=== PATIENT | female | born 2000 | race Caucasian/White ===

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

== ENCOUNTER 2020-01-14 19:51 | Outpatient (CLI) | payer OTHER ==
[2020-01-14 20:41] LABS: Appearance,Urine Cloudy (Clear); Bacteria,Urine Rare /hpf; Bilirubin,Urine Negative (Negative); Blood,Urine Negative (Negative); Color,Urine Yellow; Glucose,Urine (UA) Negative (Negative); Ketones,Urine Trace (Negative); Leukocyte Esterase,Urine Moderate (Negative); Mucus,Urine Moderate /hpf; Nitrite,Urine Negative (Negative); PH, Urine 7.5 (5.0-8.0); Protein,Urine 1+ (Negative); RBC,Urine 2 /hpf (0-5); Specific Gravity,Urine 1.028 (1.001-1.035); Squamous Epithelial Cell,Urine 20 /hpf (0-4); WBC,Urine 31 /hpf (0-5)
[2020-01-14 21:16] VITALS: BP 122/77; PULSE 108; RESP 18; TEMP 97.8
--- NOTE | 2020-02-07 12:47 | P.MSEPDOC ---
Presenting Problems - Arrival Data Date of Arrival on Unit: 01/14/20 Time of Arrival on Unit: 19:51 Mode of Transport: Ambulatory - Complaint OB-Reason for Admission/Chief Complaint: Possible Onset of Labor Medical History - Information : 1 Para: 0 Term: 0 : 0 Abortions: Spontaneous or Elective: 0 Number of Living Children: 0 - Gestational Age Gestational Age by WILI (wks/days): 32 Weeks and 3 Days Review of Systems - Review of Systems Constitutional: No problems Breast: No problems ENT: No problems Cardiovascular: No problems Respiratory: No problems Gastrointestinal: No problems Genitourinary: No problems Musculoskeletal: No problems Neurological: No problems Skin: No problems Vital Signs - Temperature Temperature: 97.8 F Temperature Source: Temporal Artery Scan - Pulse Right Pulse Rate: 108 Pulse Assessment Method: Automatic Cuff - Respirations Respiratory Rate: 18 Oxygen Delivery Method: Room Air O2 Sat by Pulse Oximetry: 98 - Blood Pressure Right Arm Blood Pressure: 122/77 Blood Pressure Mean: 92 Blood Pressure Source: Automatic Cuff Medical Screen Scoring (Pre) - Cervical Exam Dilation: Exam Deferred Effacement: Exam Deferred Membranes: Intact - Uterine Contractions Frequency: N/A Duration: N/A Intensity: N/A - Maternal Vital Signs Maternal Temperature: N/A Maternal Blood Pressure: N/A Signs of Preeclampsia: N/A Maternal Respirations: N/A - Assessment - Baby A Baseline FHR: 130 Heart Rate - NICHD Category: Category I (Normal) = 0 NST: Reactive Position: N/A Station: N/A - Total Score - Baby A Total Score - Baby A: 0 - Total Score - Baby B Total Score - Baby B: 0 - Total Score - Baby C Total Score - Baby C: 0 - Level of Risk - Baby A Level of Risk - Baby A: Low (0-5) - Level of Risk - Baby B Level of Risk - Baby B: Low (0-5) - Level of Risk - Baby C Level of Risk - Baby C: Low (0-5) Physician Notification (Pre) - Physician Notified Physician Notified Date: 01/14/20 Physician Notified Time: 21:10 New Order Received: Yes (discharge home) - Notification Comment Comment: Pt to keep appt as scheduled Disposition - Disposition OB Disposition: Discharge to home Discharge Date: 01/14/20 Discharge Time: 21:13 I agree with the RN Medical Screening Exam: Yes Risk & Benefit of care provided described in d/c instruction: Yes Diagnosis: FALSE LABOR BEFORE 37 COMPLETED WEEKS OF GEST, THIRD TRI
== END 2020-01-14 21:16 | disposition home or self-care (01) ==
LOC: FBPOP 19:51
PROVIDERS: ATTEND Obstetrics & Gynecology
DX: O47.03 False labor before 37 completed weeks of gestation, third trimester (principal); Z3A.32 32 weeks gestation of pregnancy
CPT/HCPCS: 59025; 81001; 87086; G0463; 99213

== ENCOUNTER 2020-02-17 16:42 | Outpatient (CLI) | payer OTHER ==
[2020-02-17 18:03] VITALS: BP 120/78; PULSE 100; RESP 16; TEMP 97.2
--- NOTE | 2020-03-08 08:27 | P.MSEPDOC ---
Presenting Problems - Arrival Data Date of Arrival on Unit: 02/17/20 Time of Arrival on Unit: 16:42 Mode of Transport: Ambulatory - Complaint OB-Reason for Admission/Chief Complaint: NST Medical History - Information : 1 Para: 0 Term: 0 : 0 Abortions: Spontaneous or Elective: 0 Number of Living Children: 0 - Gestational Age Gestational Age by WILI (wks/days): 37 Weeks and 2 Days Review of Systems - Review of Systems Constitutional: No problems Breast: No problems ENT: No problems Cardiovascular: No problems Respiratory: No problems Gastrointestinal: No problems Genitourinary: No problems Musculoskeletal: No problems Neurological: No problems Skin: No problems Vital Signs - Temperature Temperature: 97.2 F Temperature Source: Temporal Artery Scan - Pulse Pulse Oximetery Pulse Rate: 100 Pulse Assessment Method: Pulse Oximetry - Respirations Respiratory Rate: 16 Oxygen Delivery Method: Room Air O2 Sat by Pulse Oximetry: 99 - Blood Pressure Right Arm Blood Pressure: 120/78 Blood Pressure Mean: 92 Blood Pressure Source: Automatic Cuff Medical Screen Scoring (Pre) - Cervical Exam Dilation: Exam Deferred Effacement: Exam Deferred Membranes: Intact - Uterine Contractions Frequency: N/A Duration: N/A Intensity: N/A - Maternal Vital Signs Maternal Temperature: N/A Maternal Blood Pressure: N/A Signs of Preeclampsia: N/A Maternal Respirations: N/A - Maternal Trauma Maternal Trauma: N/A - Assessment - Baby A Baseline FHR: 120 Heart Rate - NICHD Category: Category I (Normal) = 0 NST: Reactive Position: N/A Station: N/A - Total Score - Baby A Total Score - Baby A: 0 - Total Score - Baby B Total Score - Baby B: 0 - Total Score - Baby C Total Score - Baby C: 0 - Level of Risk - Baby A Level of Risk - Baby A: Low (0-5) - Level of Risk - Baby B Level of Risk - Baby B: Low (0-5) - Level of Risk - Baby C Level of Risk - Baby C: Low (0-5) Physician Notification (Pre) - Physician Notified Physician Notified Date: 02/17/20 Physician Notified Time: 17:32 New Order Received: Yes - Notification Comment Comment: Dr. Epperson on unit, tracing reviewed, NST reactive, pt can be discharged home Disposition - Disposition OB Disposition: Discharge to home Discharge Date: 02/17/20 Discharge Time: 17:35 I agree with the RN Medical Screening Exam: Yes Risk & Benefit of care provided described in d/c instruction: Yes Diagnosis: OTHER SPECIFIED COMPLICATIONS OF LABOR AND DELIVERY
== END 2020-02-17 17:35 | disposition home or self-care (01) ==
LOC: FBPOP 16:42
PROVIDERS: ATTEND Obstetrics & Gynecology Obstetrics
DX: O75.89 Other specified complications of labor and delivery (principal); Z3A.37 37 weeks gestation of pregnancy
CPT/HCPCS: 59025; G0463; 99213

== ENCOUNTER 2020-03-09 01:06 | Inpatient (IN) | payer OTHER ==
[2020-03-09] MEDS ORDERED: LIDOCAINE 0.5% (PF) 5 MG/ML (50 ML SDV) SQ PRN (06:16)
[2020-03-09] MEDS ORDERED: OXYTOCIN 10 UNIT/ML 1 ML VIAL IM PRN (06:16)
[2020-03-09] MEDS ORDERED: METHYLERGONOVINE 0.2 MG/ML 1 ML AMP IM PRN (06:16)
[2020-03-09] MEDS ORDERED: TERBUTALINE 1 MG/ML VIAL SQ PRN (06:16)
[2020-03-09] MEDS ORDERED: CARBOPROST TROMETHAMINE 250 MCG/ML 1 ML AMP IM PRN (06:16)
[2020-03-09] MEDS ORDERED: OXYTOCIN 30 UNITS/500 ML NS 30 UNIT in SALINE 1 500ML.BAG IV SCH (06:30)
[2020-03-09 06:59] LABS: Basophils % (A) 0 %; Eosinophils # (A) 0.1 k/uL (0-0.7); Eosinophils % (A) 1 %; HCT 33.1 % (34.0-46.0); HGB 11.4 gm/dL (11.4-16.0); Lymphocytes # (A) 2.1 k/uL (1.0-4.8); Lymphocytes % (A) 17 %; MCH 32.2 pg (25.0-35.0); MCHC 34.6 g/dL (31.0-37.0); Mean Platelet Volume 8.7; Monocytes # (A) 0.7 k/uL (0-1.0); Monocytes % (A) 6 %; Neutrophils # (A) 9.1 k/uL (1.3-7.7); Neutrophils % (A) 74 %; Platelet Count 218 k/uL (150-450); RBC 3.56 m/uL (3.80-5.40); RDW 13.5 % (11.5-15.5); WBC 12.2 k/uL (4.0-11.0)
[2020-03-09] MEDS ORDERED: BUTORPHANOL 1 MG/ML 1 ML VIAL IV PRN (08:21)
--- NOTE | 2020-03-09 08:21 | P.HPOB ---
History of Present Illness H&P Date: 03/09/20 Chief Complaint: IUP at 40 and 2/sevenths weeks, postdates induction This is a pleasant 19-year-old 1 para 0 at 40-2/7 weeks that presents to labor and delivery for induction of labor secondary to postdates. Patient is noting good movement this morning and denies concerns. Patient has been receiving routine care which has been essentially uncomplicated. 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 All titers were too weak to titer. 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 As stated above they have been too weak to titer throughout the . Rubella status immune, RPR nonreactive, hepatitis B surface antigen negative, HIV negative, group beta strep negative on 02/10. Review of Systems Constitutional: Denies chills, Denies fatigue, Denies fever Ears, nose, mouth and throat: Denies headache Cardiovascular: Reports leg edema Respiratory: Denies dyspnea Gastrointestinal: Denies nausea, Denies vomiting Genitourinary: Reports Past Medical History Past Medical History: No Reported History History of Any Multi-Drug Resistant Organisms: None Reported Past Surgical History: No Surgical Hx Reported Past Anesthesia/Blood Transfusion Reactions: No Reported Reaction Past Psychological History: No Psychological Hx Reported Smoking Status: Never smoker Past Alcohol Use History: None Reported Past Drug Use History: None Reported - Past Family History Father History Unknown: Yes Medications and Allergies Home Medications Medication Instructions Recorded Confirmed Type No Known Home Medications 03/09/20 03/09/20 History Allergies Allergy/AdvReac Type Severity Reaction Status Date / Time amoxicillin Allergy Anaphylaxis Verified 03/09/20 06:15 Exam Osteopathic Statement: *. No significant issues noted on an osteopathic structural exam other than those noted in the History and Physical/Consult. Vital Signs Temp Pulse Resp BP Pulse Ox 03/09/20 06:14 97.5 F L 102 H 16 137/69 100 Intake and Output 03/08/20 03/09/20 03/09/20 22:59 06:59 14:59 Other: Weight 99.79 kg Targeted physical exam is performed in this date in general this a well- nourished well-developed female in no acute distress, breathing is noted to be nonlabored, heart has regular rate and rhythm, abdomen is gravid and appropriate for gestational age, heart tones were noted to be category 1 and she is shawn irregularly. On cervical exam she is 3/50/-2 station amniotomy is performed. Clear fluid was obtained. Results Result Diagrams: 03/09/20 06:45 Abnormal Lab Results - Last 24 Hours (Table) 03/09/20 Range/Units 06:45 WBC 12.2 H (4.0-11.0) k/uL RBC 3.56 L (3.80-5.40) m/uL Hct 33.1 L (34.0-46.0) % Neutrophils # 9.1 H (1.3-7.7) k/uL Assessment and Plan (1) Post-dates Current Visit: Yes Status: Acute Code(s): O48.0 - POST-TERM SNOMED Code(s): 40256363 Plan: This 19-year-old 1 para 0 at 40-2/7 weeks is admitted to labor and delivery for postdates induction. Patient is started on Pitocin induction per hospital protocol. Options for analgesia her discussed with patient including Stadol and epidural. Patient will consider both. We'll monitor closely.
[2020-03-09] MEDS ORDERED: fentaNYL (PF) 50 MCG/ML 5 ML AMP ONE (10:57)
[2020-03-09] MEDS ORDERED: ROPIVACAINE 5MG/ML 20ML VIAL ONE (10:57)
[2020-03-09] MEDS ORDERED: SODIUM CHLORIDE 0.9% 100 ML BAG ONE (10:57)
--- NOTE | 2020-03-09 12:32 | P.ANPRN ---
Procedure Note - Anesthesia - Epidural/Spinal Epidural Continuous Time Out Performed: Yes Date of Procedure: 03/09/20 Procedure Start Time: 10:54 Location of Patient: OB Indication: Analgesia, Requested by Surgeon Sedation Type: Awake Preparation: Sterile Prep Position: Sitting Catheter Depth at Skin (cm): 11 Catheter: Indwelling Needle Guage: 18 Injectate: Test Dose Lidocaine1.5% w/1:200,000 epi (Negative) Blood Aspirated: No Pain Paresthesia on Injection Noted: No Events: Uneventful and Well Tolerated
[2020-03-09] MEDS ORDERED: BENZOCAINE/MENTHOL SPRAY 1 GM/SPRAY AEROSOL TOPICAL PRN (15:28)
[2020-03-09] MEDS ORDERED: diphenhydrAMINE 25 MG CAP PO PRN (15:28)
[2020-03-09] MEDS ORDERED: SIMETHICONE 80 MG CHEWABLE PO PRN (15:28)
[2020-03-09] MEDS ORDERED: ACETAMINOPHEN TAB 325 MG TAB PO PRN (15:28)
[2020-03-09] MEDS ORDERED: diphenhydrAMINE 50 MG/ML 1 ML VIAL IVP PRN ×2 (15:28)
[2020-03-09] MEDS ORDERED: HYDROCORTISONE 2.5% RECTAL CREAM 30 GM TUBE RECTAL PRN (15:28)
[2020-03-09] MEDS ORDERED: LANOLIN CREAM 5 GM TUBE TOPICAL PRN (15:28)
[2020-03-09] MEDS ORDERED: diphenhydrAMINE 50 MG CAP PO PRN (15:28)
[2020-03-09] MEDS ORDERED: ZOLPIDEM 5 MG TAB PO PRN (15:28)
[2020-03-09] MEDS ORDERED: HYDROcodone/APAP 5-325MG 1 EACH TAB PO PRN (15:28)
[2020-03-09] MEDS ORDERED: OXYTOCIN 20 UNITS/1000 ML NS 1,000 ML IV SCH (15:30)
--- NOTE | 2020-03-09 15:32 | P.PROBDLV ---
Vaginal Delivery Note - . Vaginal Delivery Note: This pleasant 19-year-old 1 para 0 at 40-2/7 weeks presents to labor and delivery for scheduled induction of labor secondary to postdates. Patient was admitted to labor and delivery and Pitocin induction of labor was begun. Amniotomy was performed when regular contractions were noted. Clear fluid was obtained. Patient progressed through labor eventually becoming uncomfortable and requesting epidural placement. Patient had epidural placed by the anesthes ia department. Patient progressed to complete began pushing and had a normal spontaneous vaginal delivery with a loose nuchal cord that was delivered through at 1510, weight of 8 lbs. 8 oz. and Apgars of 8 and 9 at one and 5 minutes respectively. After two-minute delay the umbilical cord was doubly clamped, and cut. The placenta was delivered spontaneously intact with three-vessel cord being noted. On inspection the patient's vaginal vault a first degree vaginal laceration was noted two [id number] sutures were used to obtain hemostasis of 3-0 Rapide. The uterus was noted be firm and below the umbilicus at this time, estimated blood loss 300 mL, patient and tolerated delivery well and are resting comfortably. All counts were noted to be correct 2 at the the procedure.
[2020-03-09] MEDS: SENNOSIDES-DOCUSATE SODIUM 1 EACH TAB PO SCH (19:46)
[2020-03-09] MEDS: IBUPROFEN 600 MG TAB PO PRN (22:13)
[2020-03-10] MEDS: LACTATED RINGERS 1,000 ML IV SCH ×2 (02:27→02:28)
[2020-03-10] MEDS: IBUPROFEN 600 MG TAB PO PRN (06:10)
[2020-03-10] MEDS: SENNOSIDES-DOCUSATE SODIUM 1 EACH TAB PO SCH (07:33)
[2020-03-10 07:48] VITALS: RESP 16
--- NOTE | 2020-03-10 08:20 | P.DS ---
Providers Date of admission: 03/09/20 06:00 Expected date of discharge: 03/10/20 Attending physician: Amparo Epperson Primary care physician: Stated None - Discharge Diagnosis(es) (1) Post-dates Current Visit: Yes Status: Acute (2) Status post vaginal delivery Current Visit: Yes Status: Acute Hospital Course: This is a 19-year-old 1 para 0 at 40-2/7 weeks that presented to labor and delivery yesterday for induction of labor. Patient was admitted to labor and delivery and Pitocin induction of labor was begun. Patient underwent amniotomy and clear fluid was obtained. Patient pressed through labor eventually becoming uncomfortable and requested epidural placement. Epidural was placed without difficulty by the anesthesia department. Patient progressed to complete began pushing and had a normal spontaneous vaginal delivery of a viable male at 15 and 10, weight of 8 lbs. 8 oz. with Apgars of 8 and 9 at one and 5 minutes respectively. Patient did sustain a first-degree vaginal laceration was repaired with a [id number] suture. Patient's course has been uneventful. On this day #1 she is ambulating and voiding without difficulty. She is tolerating a regular diet without nausea or vomiting. She states her pain is well-controlled. She would like discharge home at 24 hours if possible. Patient Condition at Discharge: Good Plan - Discharge Summary New Discharge Prescriptions: No Action No Known Home Medications Discharge Medication List No Known Home Medications 03/09/20 [History] Patient Instructions/Handouts: Vaginal Delivery (DC), Vaginal Delivery (GEN) Activity/Diet/Wound Care/Special Instructions: Patient can expect vaginal bleeding for 4-6 weeks after delivery. No tub baths or intercourse until 6 weeks . Patient is to use oral ibuprofen as needed for discomfort. If patient has any concerns prior to 4 week check she is to call the office. Discharge Disposition: HOME SELF-CARE
[2020-03-10 16:18] VITALS: BP 120/68; PULSE 76; TEMP 97.5
== END 2020-03-10 16:00 | disposition home or self-care (01) | DRG 807 ==
LOC: 4FBP 06:00
PROVIDERS: ADMIT Obstetrics & Gynecology Obstetrics; ATTEND Obstetrics & Gynecology Obstetrics
PROC: 3E033VJ Introduction of Other Hormone into Peripheral Vein, Percutaneous Approach (ICD-10-PCS; principal; 2020-03-09)
PROC: 10E0XZZ Delivery of Products of Conception, External Approach (ICD-10-PCS; principal; 2020-03-09)
PROC: 10907ZC Drainage of Amniotic Fluid, Therapeutic from Products of Conception, Via Natural or Artificial Opening (ICD-10-PCS; principal; 2020-03-09)
PROC: 0HQ9XZZ Repair Perineum Skin, External Approach (ICD-10-PCS; principal; 2020-03-09)
PROC: 3E0R3BZ Introduction of Anesthetic Agent into Spinal Canal, Percutaneous Approach (ICD-10-PCS; principal; 2020-03-09)
PROC: 00HU33Z Insertion of Infusion Device into Spinal Canal, Percutaneous Approach (ICD-10-PCS; principal; 2020-03-09)
DX: O48.0 Post-term pregnancy (principal); Z37.0 Single live birth; O69.81X0 Labor and delivery complicated by cord around neck, without compression, not applicable or unspecified; O70.0 First degree perineal laceration during delivery; O99.62 Diseases of the digestive system complicating childbirth; K21.9 Gastro-esophageal reflux disease without esophagitis; Z3A.40 40 weeks gestation of pregnancy; Z88.0 Allergy status to penicillin
CPT/HCPCS: 85025; 86850; 86900; 86901

== ENCOUNTER 2021-10-16 18:49 | Emergency (ER) | payer OTHER ==
[2021-10-16 18:58] VITALS: BP 143/79; PULSE 106; RESP 20; TEMP 98.6
--- NOTE | 2021-10-16 20:39 | XR ---
EXAMINATION TYPE: XR chest 2V DATE OF EXAM: 10/16/2021 COMPARISON: 06/08/2016 HISTORY: Right-sided chest pain TECHNIQUE: 2 views FINDINGS: Heart and mediastinum are normal. Lungs are clear. Diaphragm is normal. Bony thorax appears normal. IMPRESSION: Normal chest. No change.
--- NOTE | 2021-10-16 23:15 | ED ---
General Adult HPI - General Chief complaint: Chest Pain Stated complaint: Chest pains Time Seen by Provider: 10/16/21 22:48 Source: patient, RN notes reviewed Mode of arrival: ambulatory Limitations: no limitations - History of Present Illness Initial comments: 21-year-old female presents to the emergency department for evaluation of complaints of chest tightness and shortness of breath throughout the day today. Patient states she did take a home Covid test that was negative. States she attempted to treat her symptoms earlier today with a warm shower thinking maybe it was related to anxiety. States she continued to feel worse throughout the day so came to the emergency department, but is unable to stay for any further evaluation. Denies fever, chills, cough, congestion, nasal drainage, abdominal pain, nausea, vomiting, diarrhea, or dysuria. - Related Data Home Medications Medication Instructions Recorded Confirmed Budesonide/Formoterol Fumarate 2 puff INHALATION RT-BID 10/16/21 10/16/21 [Symbicort 80-4.5 Mcg Inhaler] Norethindrone-E.estradiol-Iron 1 tab PO DAILY 10/16/21 10/16/21 [Junel Fe 1 mg-20 Mcg Tablet] buPROPion [Wellbutrin] 75 mg PO DAILY 10/16/21 10/16/21 Allergies Allergy/AdvReac Type Severity Reaction Status Date / Time amoxicillin Allergy Anaphylaxis Verified 10/16/21 23:09 Review of Systems ROS Statement: Those systems with pertinent positive or pertinent negative responses have been documented in the HPI. ROS Other: All systems not noted in ROS Statement are negative. Past Medical History Past Medical History: No Reported History History of Any Multi-Drug Resistant Organisms: None Reported Past Surgical History: No Surgical Hx Reported Past Anesthesia/Blood Transfusion Reactions: No Reported Reaction Past Psychological History: No Psychological Hx Reported Smoking Status: Never smoker Past Alcohol Use History: None Reported Past Drug Use History: None Reported - Past Family History Father History Unknown: Yes General Exam Limitations: no limitations (Well-developed, well-nourished female in no acute distress. Initial temperature 98.6, pulse 106, respirations 20, blood pressure 143/79, pulse ox 99% on room air.) General appearance: alert, in no apparent distress Respiratory exam: Present: normal lung sounds bilaterally. Absent: respiratory distress, wheezes, rales, rhonchi, stridor Cardiovascular Exam: Present: regular rate, normal rhythm, normal heart sounds. Absent: systolic murmur, diastolic murmur, rubs, gallop, clicks Neurological exam: Present: alert, oriented X3, CN II-XII intact Psychiatric exam: Present: anxious, other (Patient is anxious as she needs to attend to her children at home.) Skin exam: Present: warm, dry, intact, normal color. Absent: rash Course Vital Signs 10/16/21 18:54 Temperature 98.6 F Pulse Rate 106 H Respiratory 20 Rate Blood Pressure 143/79 O2 Sat by Pulse 99 Oximetry - Reevaluation(s) Reevaluation #1: 10/16/21 23:14 During initial assessment, patient states she is needing to leave as she has a child at home she needs to attend to and her ride is already present. Discussed intended work up, however, patient did request a few minutes to talk with her ride about staying. When this provider re-entered room, patient was not there a nd belongings had been removed therefore it is assumed that patient eloped. Medical Decision Making - Medical Decision Making This is a 21-year-old female who presents to the emergency department for evaluation of chest tightness and shortness of breath throughout the day today. Patient was briefly evaluated, however was unable to remain present to complete the workup. Her physical exam findings were unremarkable. No laboratory studies were completed. Chest x-ray was ordered in triage and was negative. Patient eloped prior to further evaluation and treatment. She was given no return parameters or discharge instructions. Attending: [place]. - Radiology Data Radiology results: report reviewed, image reviewed Two-view chest x-ray was obtained. Report was reviewed in its entirety. Impression per Dr. Ta as normal chest. No change. Disposition Clinical Impression: Eloped from emergency department Disposition: HOME SELF-CARE Condition: Stable Is patient prescribed a controlled substance at d/c from ED?: No Referrals: Andres Navas MD [Primary Care Provider] - 1-2 days Time of Disposition: 23:15
== END 2021-10-16 23:21 | disposition home or self-care (01) ==
LOC: EC 18:49
DX: R07.89 Other chest pain (principal); R06.02 Shortness of breath
CPT/HCPCS: 71046; 93005; 99284

== ENCOUNTER 2024-08-15 14:09 | Emergency (ER) | payer OTHER ==
[2024-08-15 14:30] VITALS: RESP 18; TEMP 98
--- NOTE | 2024-08-15 15:49 | ED ---
Female Urogenital HPI - General Chief complaint: Vaginal Bleeding Stated complaint: Vag Bleeding Time Seen by Provider: 08/15/24 15:49 Source: patient, RN notes reviewed Mode of arrival: ambulatory Limitations: no limitations - History of Present Illness Initial comments: 23-year-old A1 presented to the ER for evaluation of abdominal cramping. Patient reports her last menstrual cycle was 07-06-2024. She states this menstrual cycle was very abnormal for her as her cycle was only 5 days when it is typically 7 with rare light bleeding. She states last week she took 3 at home urine test all of which were positive. She reports minor spot ting at that time which she did not think anything of. She states last night she started to experience lower abdominal cramping and back discomfort. She also reports feeling 1 pad yesterday with blood. Patient states she has not followed up with OB at this time due to scheduling issues. She reports intermittent nausea but denies vomiting. No fevers, cough, congestion, chest pain, shortness of breath, constipation/diarrhea, urinary complaints or peripheral edema. - Related Data Home Medications Medication Instructions Recorded Confirmed Budesonide/Formoterol Fumarate 2 puff INHALATION RT-BID 10/16/21 10/16/21 [Symbicort 80-4.5 Mcg Inhaler] buPROPion [Wellbutrin] 75 mg PO DAILY 10/16/21 10/16/21 norethindrone-e.estradioL-iron 1 tab PO DAILY 10/16/21 10/16/21 [Junel Fe 1 mg-20 Mcg Tablet] Allergies Allergy/AdvReac Type Severity Reaction Status Date / Time amoxicillin Allergy Anaphylaxis Verified 08/15/24 14:30 bupropion [From Wellbutrin] AdvReac Chest Pain Verified 08/15/24 14:30 Review of Systems ROS Statement: Those systems with pertinent positive or pertinent negative responses have been documented in the HPI. ROS Other: All systems not noted in ROS Statement are negative. Past Medical History Past Medical History: No Reported History History of Any Multi-Drug Resistant Organisms: None Reported Past Surgical History: No Surgical Hx Reported Past Anesthesia/Blood Transfusion Reactions: No Reported Reaction Past Psychological History: No Psychological Hx Reported Smoking Status: Never smoker, Vaper Past Alcohol Use History: Occasional Past Drug Use History: Marijuana - Past Family History Father History Unknown: Yes General Exam Limitations: no limitations General appearance: alert, in no apparent distress Respiratory exam: Present: normal lung sounds bilaterally. Absent: respiratory distress, wheezes, rales, rhonchi, stridor Cardiovascular Exam: Present: regular rate, normal rhythm, normal heart sounds. Absent: systolic murmur, diastolic murmur, rubs, gallop, clicks GI/Abdominal exam: Present: soft, tenderness (Left lower quadrant), normal bowel sounds Extremities exam: Present: normal inspection, full ROM, normal capillary refill. Absent: tenderness, pedal edema, joint swelling, calf tenderness Neurological exam: Present: alert, oriented X3, CN II-XII intact Skin exam: Present: warm, dry, intact, normal color. Absent: rash Course Vital Signs 08/15/24 08/15/24 14:27 17:10 Temperature 98 F Pulse Rate 130 H 86 Respiratory 18 18 Rate Blood Pressure 120/73 123/76 O2 Sat by Pulse 99 98 Oximetry Medical Decision Making - Medical Decision Making Was pt. sent in by a medical professional or institution (, PA, SENIOR QUALITATIVE RESEARCHER, urgent care, hospital, or detention...) When possible be specific @ -No Did you speak to anyone other than the patient for history (EMS, parent, family, police, friend...)? What history was obtained from this source @ -No Did you review nursing and triage notes (agree or disagree)? Why? @ -I reviewed and agree with nursing and triage notes Were old charts reviewed (outside hosp., previous admission, EMS record, old EKG, old radiological studies, urgent care reports/EKG's, detention records)? Report findings @ -No old charts were reviewed Differential Diagnosis (chest pain, altered mental status, abdominal pain women, abdominal pain men, vaginal bleeding, weakness, fever, dyspnea, syncope, headache, dizziness, GI bleed, back pain, seizure, CVA, palpatations, mental health, musculoskeletal)? @ -Differential Vaginal Bleeding: Spontaneous , threatened , molar , ectopic , bloody show, incompetent cervix, abruptioplacenta, placenta previa, uterine rupture, dysfunctional uterine bleeding, hemorrhage, uterine fibroids, this is not meant to be an all-inclusive list. EKG interpreted by me (3pts min.). @ -None done X-rays interpreted by me (1pt min.). @ -None done CT interpreted by me (1pt min.). @ -None done U/S interpreted by me (1pt. min.). @ - ultrasound showing a small anechoic intrauterine cystic structure without evidence of yolk sac or pole at this time. What testing was considered but not performed or refused? (CT, X-rays, U/S, labs)? Why? @ -None What meds were considered but not given or refused? Why? @ -None Did you discuss the management of the patient with other professionals (professionals i.e. , PA, SENIOR QUALITATIVE RESEARCHER, lab, RT, psych nurse, forensic social worker, junior qa analyst, teacher, hospital chief financial officer, outsole caser)? Give summary @ -No Was smoking cessation discussed for >3mins.? @ -No Was critical care preformed (if so, how long)? @ -No Were there social determinants of health that impacted care today? How? (Homelessness, low income, unemployed, alcoholism, drug addiction, transportation, low edu. Level, literacy, decrease access to med. care, longterm, rehab)? @ -No Was there de-escalation of care discussed even if they declined (Discuss DNR or withdrawal of care, Hospice)? DNR status @ -No What co-morbidities impacted this encounter? (DM, HTN, Smoking, COPD, CAD, Cancer, CVA, ARF, Chemo, Hep., AIDS, mental health diagnosis, sleep apnea, morbid obesity)? @ - Was patient admitted / discharged? Hospital course, mention meds given and route, prescriptions, significant lab abnormalities, going to OR and other pertinent info. @ - Discharge. 23-year-old female A1 presented the ER for evaluation of lower abdominal cramping and back pain. Patient believes she is as she has had 3 positive urine test at home. Vital signs within acceptable limits upon my evaluation. Laboratory studies confirm with hCG of 7,325, otherwise unremarkable. Urinalysis unremarkable. ultrasound coleen wing a small anechoic intrauterine cystic structure without evidence of yolk sac or pole at this time. Blood type O+, RhoGAM not indicated. Patient stable for discharge with outpatient follow-up. Patient reports she has follow- up with [facility] on Saturday. I instructed patient to have serial hCGs drawn every 48 hours, prescription given. Strict return parameters discussed. Patient discharged in stable condition with follow-up to [facility], referral given. Patient verbally expressed understanding and agreement with care plan. Case discussed with ED attending, Dr. Wallace. Undiagnosed new problem with uncertain prognosis? @ -No Drug Therapy requiring intensive monitoring for toxicity (Heparin, Nitro, Insulin, Cardizem)? @ -No Were any procedures done? @ -No Diagnosis/symptom? @ -Threatened Acute, or Chronic, or Acute on Chronic? @ -Acute Uncomplicated (without systemic symptoms) or Complicated (systemic symptoms)? @ -Uncomplicated Side effects of treatment? @ -No Exacerbation, Progression, or Severe Exacerbation? @ -No Poses a threat to life or bodily function? How? (Chest pain, [place], [place], pneumonia, PE, COPD, DKA, ARF, appy, cholecystitis, CVA, Diverticulitis, Homicidal, Suicidal, threat to staff... and all critical care pts) @ -No - Lab Data Result diagrams: 08/15/24 15:39 08/15/24 15:39 Lab Results 08/15/24 08/15/24 08/15/24 Range/Units 15:34 15:39 15:39 WBC 4.9 (3.8-10.6) k/uL RBC 3.98 (3.80-5.40) m/uL Hgb 12.6 (11.4-16.0) gm/dL Hct 36.7 (34.0-46.0) % MCV 92.3 (80.0-100.0) fL MCH 31.6 (25.0-35.0) pg MCHC 34.3 (31.0-37.0) g/dL RDW 11.8 (11.5-15.5) % Plt Count 201 (150-450) k/uL MPV 7.0 Neutrophils % 64 % Lymphocytes % 24 % Monocytes % 8 % Eosinophils % 2 % Basophils % 0 % Neutrophils # 3.1 (1.3-7.7) k/uL Lymphocytes # 1.2 (1.0-4.8) k/uL Monocytes # 0.4 (0-1.0) k/uL Eosinophils # 0.1 (0-0.7) k/uL Basophils # 0.0 (0-0.2) k/uL Sodium (137-145) mmol/L Potassium (3.5-5.1) mmol/L Chloride (98-107) mmol/L Carbon Dioxide (22-30) mmol/L Anion Gap mmol/L BUN (7-17) mg/dL Creatinine (0.52-1.04) mg/dL Est GFR (CKD-EPI)AfAm (>60 ml/min/1.73 sqM) Est GFR (CKD-EPI)NonAf (>60 ml/min/1.73 sqM) Glucose (74-99) mg/dL Calcium (8.4-10.2) mg/dL Total Bilirubin (0.2-1.3) mg/dL AST (14-36) U/L ALT (4-34) U/L Alkaline Phosphatase (38-126) U/L Total Protein (6.3-8.2) g/dL Albumin (3.5-5.0) g/dL HCG, Quant mIU/mL Urine Color Yellow Urine Appearance Clear (Clear) Urine pH 7.0 (5.0-8.0) Ur Specific Aubrey 1.018 (1.001-1.035) Urine Protein Negative (Negative) Urine Glucose (UA) Negative (Negative) Urine Ketones Negative (Negative) Urine Blood Negative (Negative) Urine Nitrite Negative (Negative) Urine Bilirubin Negative (Negative) Urine Urobilinogen <2.0 (<2.0) mg/dL Ur Leukocyte Esterase Negative (Negative) Blood Type O Positive Blood Type Recheck O Pos Bld Type Recheck Status No 08/15/24 Range/Units 15:39 WBC (3.8-10.6) k/uL RBC (3.80-5.40) m/uL Hgb (11.4-16.0) gm/dL Hct (34.0-46.0) % MCV (80.0-100.0) fL MCH (25.0-35.0) pg MCHC (31.0-37.0) g/dL RDW (11.5-15.5) % Plt Count (150-450) k/uL MPV Neutrophils % % Lymphocytes % % Monocytes % % Eosinophils % % Basophils % % Neutrophils # (1.3-7.7) k/uL Lymphocytes # (1.0-4.8) k/uL Monocytes # (0-1.0) k/uL Eosinophils # (0-0.7) k/uL Basophils # (0-0.2) k/uL Sodium 135 L (137-145) mmol/L Potassium 3.9 (3.5-5.1) mmol/L Chloride 102 (98-107) mmol/L Carbon Dioxide 24 (22-30) mmol/L Anion Gap 9 mmol/L BUN 10 (7-17) mg/dL Creatinine 0.60 (0.52-1.04) mg/dL Est GFR (CKD-EPI)AfAm >90 (>60 ml/min/1.73 sqM) Est GFR (CKD-EPI)NonAf >90 (>60 ml/min/1.73 sqM) Glucose 94 (74-99) mg/dL Calcium 9.4 (8.4-10.2) mg/dL Total Bilirubin 0.5 (0.2-1.3) mg/dL AST 24 (14-36) U/L ALT 27 (4-34) U/L Alkaline Phosphatase 65 (38-126) U/L Total Protein 7.2 (6.3-8.2) g/dL Albumin 4.4 (3.5-5.0) g/dL HCG, Quant 7325.7 mIU/mL Urine Color Urine Appearance (Clear) Urine pH (5.0-8.0) Ur Specific Aubrey (1.001-1.035) Urine Protein (Negative) Urine Glucose (UA) (Negative) Urine Ketones (Negative) Urine Blood (Negative) Urine Nitrite (Negative) Urine Bilirubin (Negative) Urine Urobilinogen (<2.0) mg/dL Ur Leukocyte Esterase (Negative) Blood Type Blood Type Recheck Bld Type Recheck Status - Radiology Data Radiology results: report reviewed, image reviewed Disposition Clinical Impression: , Threatened Disposition: HOME SELF-CARE Condition: Stable Additional Instructions: Follow-up with [facility]. Return to the ER for any new or worsening concerns. Have repeat hCG drawn in 48 hours. Is patient prescribed a controlled substance at d/c from ED?: No Referrals: Andres Navas MD [Primary Care Provider] - 1-2 days Maddie Alcantara DO [Doctor of Osteopathic Medicine] - 1-2 days Time of Disposition: 17:10
[2024-08-15 16:00] LABS: Appearance,Urine Clear (Clear); Basophils % (A) 0 %; Bilirubin,Urine Negative (Negative); Blood,Urine Negative (Negative); Color,Urine Yellow; Eosinophils # (A) 0.1 k/uL (0-0.7); Eosinophils % (A) 2 %; Glucose,Urine (UA) Negative (Negative); HCT 36.7 % (34.0-46.0); HGB 12.6 gm/dL (11.4-16.0); Ketones,Urine Negative (Negative); Leukocyte Esterase,Urine Negative (Negative); Lymphocytes # (A) 1.2 k/uL (1.0-4.8); Lymphocytes % (A) 24 %; MCH 31.6 pg (25.0-35.0); MCHC 34.3 g/dL (31.0-37.0); MCV 92.3 fL (80.0-100.0); Monocytes # (A) 0.4 k/uL (0-1.0); Monocytes % (A) 8 %; Neutrophils # (A) 3.1 k/uL (1.3-7.7); Neutrophils % (A) 64 %; Nitrite,Urine Negative (Negative); Platelet Count 201 k/uL (150-450); Protein,Urine Negative (Negative); RBC 3.98 m/uL (3.80-5.40); RDW 11.8 % (11.5-15.5); Specific Gravity,Urine 1.018 (1.001-1.035); Urobilinogen,Urine <2.0 mg/dL (<2.0); WBC 4.9 k/uL (3.8-10.6)
[2024-08-15 16:16] LABS: ALT 27 U/L (4-34); AST 24 U/L (14-36); African American GFR (CKD) >90 (>60 ml/min/1.73 sqM); Albumin 4.4 g/dL (3.5-5.0); Alkaline Phosphatase 65 U/L (38-126); Anion Gap 9 mmol/L; Blood Urea Nitrogen 10 mg/dL (7-17); Calcium 9.4 mg/dL (8.4-10.2); Carbon Dioxide 24 mmol/L (22-30); Chloride 102 mmol/L (98-107); Glucose 94 mg/dL (74-99); Non-African American GFR(CKD) >90 (>60 ml/min/1.73 sqM); Potassium 3.9 mmol/L (3.5-5.1); Sodium 135 mmol/L (137-145); Total Bilirubin 0.5 mg/dL (0.2-1.3); Total Protein 7.2 g/dL (6.3-8.2)
[2024-08-15 16:31] LABS: HCG,Quantitative Serum 7325.7 mIU/mL
--- NOTE | 2024-08-15 17:00 | US ---
EXAMINATION TYPE: Transabdominal DATE OF EXAM: 08/15/2024 4:40 PM COMPARISON: NONE CLINICAL INDICATION: Female, 23 years old with history of vag bleeding; spotting last week, lower alber k pain and pelvic pain began last night Rt >Lt TECHNIQUE: Transabdominal (TA) with grayscale imaging including first trimester . FINDINGS: EXAM MEASUREMENTS: GESTATIONAL AGE / DATING Physician Established: Not yet established Dates by LMP: LMP unknown/ may be 07/06/24 (5 weeks/5 days) EDC: 04/12/2025 Dates by First Scan: No previous this is first scan Dates by Current Scan for: Unable to date by today's study MATERNAL ANATOMY Uterus: 9.72x4.9x9.2 Right Ovary: 3.9x1.5x2.5cm Left Ovary: 4.0x1.9x3.3cm Post CDS / Adnexa: wnl Presence of free fluid: no Presence of corpus luteal cyst: no Presence of subchorionic bleed: no GESTATION / SURVEY CRL: not visualized Gestational Sac morphology: Normal Gestational Sac MSD: 0.91 measures out of range, unable to date by today's exam IUP: possible gestational sac noted at right fundal region Date of LMP: unknown or 07/06/24 Beta HcG (if available): 7325.7 mIU/mL IMPRESSION: 1. Small anechoic intrauterine cystic structure without evidence for yolk sac or pole at this t feliciano. This is thought to represent an early gestational sac with a positive beta hCG of mIU/mL, howeve r ectopic and abnormal intrauterine cannot be ruled out based on this exam alone. Follow-up with pelvic ultrasound in 7-10 days and serial beta-hCG studies are recommended to en sure further development of the fetus. [facility], , 08/15/2024 4:58 PM
[2024-08-15 17:11] VITALS: BP 123/76; PULSE 86
== END 2024-08-15 17:12 | disposition home or self-care (01) ==
LOC: EC 14:09
DX: O20.0 Threatened abortion (principal); F17.290 Nicotine dependence, other tobacco product, uncomplicated; Z88.0 Allergy status to penicillin; Z88.8 Allergy status to other drugs, medicaments and biological substances; Z3A.00 Weeks of gestation of pregnancy not specified
CPT/HCPCS: 36415; 76801; 80053; 81003; 84702; 85025; 86900; 86901; 99284

== ENCOUNTER → 2024-08-18 | Outpatient (CLI) | payer OTHER | END | disposition home or self-care (01) | LOC: LABWHC1 14:09 | PROVIDERS: ATTEND Emergency Medicine | DX: O20.0 Threatened abortion (principal) | CPT/HCPCS: 36415; 84702 ==